=== PATIENT | male | born 1935 | race Caucasian/White ===

== ENCOUNTER 2016-11-14 11:28 | Emergency (ER) | payer MEDICARE ==
[2016-11-14] MEDS ORDERED: Sodium Chloride 0.9% 10 ML Syringe FLUSH PRN (12:01)
[2016-11-14] MEDS ORDERED: Sodium Chloride 0.9% 2.5 ML Syringe FLUSH PRN (12:01)
[2016-11-14] MEDS ORDERED: Albuterol/Ipratropium 3.0-0.5 MG/3 ML Neb Soln NEB ONE (12:02)
--- NOTE | 2016-11-14 12:07 | EDM.PDOC ---
ED HPI GENERAL MEDICAL PROBLEM - General Chief Complaint: Respiratory Problem Stated Complaint: COUGH Time Seen by Provider: 11/14/16 11:49 - History of Present Illness INITIAL COMMENTS - FREE TEXT/NARRATIVE: HISTORY AND PHYSICAL: History of present illness: The patient is an 81-year-old male who resides at [facility] and has a history of COPD dementia with mood disorder hypothyroidism BPH hypertension chronic renal disease A. fib and continues to try to smoke and use a nicotine gum and was sent by [facility] for persistent cough productive of phlegm low O2 sats and abnormal labs performed on November 05. According to the report his sats were in the 80s and they sent him here because he was coughing and had low oxygen. He was started on Levaquin yesterday by Dr. Naik for the cough. The patient initially did not want to come here and was refusing to come and refuse oxygen to be placed. According to CHEMICAL ECONOMIST at bedside he has not been eating and drinking very much and mostly drinks coffee. The patient admits that he drinks mostly coffee and is not eating very much due to lack of appetite. He says that he is having the cough but denies chest pain abdominal pain nausea or vomiting and no fevers or chills. He says that he has had some loose stools and he is unsure of any history of chronic renal disease or new problems. He states that he is passing his urine. Patient is not a very good historian and we are working solely from the notes and the CHEMICAL ECONOMIST's report at bedside. Review of systems: As per history of present illness and below otherwise all systems reviewed and negative. Past medical history: As per history of present illness and as reviewed below otherwise noncontributory. Surgical history: As per history of present illness and as reviewed below otherwise noncontributory. Social history: No reported history of drug or alcohol abuse. Family history: As per history of present illness and as reviewed below otherwise noncontributory. Physical exam: Gen.: Very thin and frail male in clearly without breathlessness and is quite verbally confrontational and grouchy. His skin turgor is diminished. HEENT: Atraumatic, normocephalic, pupils reactive, negative for conjunctival pallor or scleral icterus, mucous membranes tacky, throat clear, neck supple, nontender, trachea midline. Lungs: Clear to auscultation with some coarse breath sounds bilaterally and diminished breath sounds at the bases but no work of breathing or sensory muscle use, breath sounds equal bilaterally, chest nontender. Heart: S1S2, regular rate and rhythm no overt murmurs Abdomen: Soft, nondistended, bladder appears to be distended and somewhat tender on palpation but otherwise no rebound guarding or tenderness. Bowel sounds are hypoactive Negative for masses or hepatosplenomegaly. Negative for costovertebral tenderness. Pelvis: Stable nontender. Genitourinary: Deferred. Rectal: Deferred. Extremities: Atraumatic, negative for cords or calf pain. Neurovascular unremarkable. There is no pedal edema Neuro: Awake, alert, oriented. Motor and sensory unremarkable throughout. Exam nonfocal. Diagnostics: EKG chest x-ray CBC CMP INR UA urine culture blood cultures digoxin level troponin BNP lactic acid bladder scan Bladder scan revealed greater than 1 L of urine retention so a Vee will be placed. Therapeutics: IV O2 monitor gentle IV fluids duo neb Vee to gravity Please note that after the DuoNeb respiratory therapy says that he is 92% on room air but will sometimes dipped down and so oxygen will be applied. Please note that the blood work that was done on November 05, was sent by [facility] and this result reveals a BUS of 50 to a creatinine of 3.48 and a potassium of 5.9 with CO2 of 34. I spoke with Dr. Naik of [facility], this patient's provider at [facility], and he states that the patient had labs done yesterday which revealed a creatinine of 4.1. He was unaware of the urinary retention. He said that they were treating him pulmonary [place] with duo nebs oxygen and Levaquin. He states that if the labs are baseline and he does not want to stay in the hospital or there is no criteria for admission he is comfortable with the patient going back to the alf and he will see him on Thursday. We will continue with our workup and evaluate disposition once this is complete. Vee was placed and 1400 mL of urine has come out. UA and urine culture were sent. We have clamped the Vee and will reopen it in a bit and nursing will document the total urine output. 1307: Case was rediscussed with Dr. Naik. He is aware of all testing results and says he cannot recall if a dig level has been done in recent months to indicate if this level today is elevated acutely or chronically. He is recommending stopping the digoxin and he will formalize that order at [facility]. I discussed with the patient the testing results as best as he can understand here and that he should be observed in the hospital due to his kidneys and the postobstructive uropathy and he is adamant about going back to [facility]. From the moment the patient has arrived here until now he has been adamant about returning to [facility] and not staying in the hospital. Our nursing metalizing supervisor Aaron is also discussed with him at length and he is agreeable to keep the Vee in which she previously wanted removed but he is again refusing admission to him as well. Dr. Naik is aware of this and of my concerns and he says he will follow up the patient's renal function and digitoxin level on Thursday. Critical care time excluding procedures: 35min Impression: Dyspnea and mild hypoxia probable COPD exacerbation, on treatment Progressively worsening renal function with Acute urinary retention --with a history of BPH--rule out postobstructive uropathy Elevated digoxin level Diffusing admission for observation Definitive disposition and diagnosis as appropriate pending reevaluation and review of above. - Related Data Allergies Allergy/AdvReac Type Severity Reaction Status Date / Time Penicillins Allergy Rash Verified 05/18/13 17:19 Home Meds: Home Meds Acetaminophen [Tylenol Extra Strength] 500 mg PO TID PRN 05/18/13 [History] Digoxin 0.125 mg PO DAILY 05/18/13 [History] Tamsulosin [Tamsulosin 24 Hr] 0.4 mg PO DAILY 05/18/13 [History] Albuterol/Ipratropium [DuoNeb 3.0-0.5 MG/3 ML] 3 ml NEB QID 11/14/16 [History] Ascorbate Calcium [Vitamin C] 1,000 mg PO BID 11/14/16 [History] Aspirin [Halfprin] 81 mg PO DAILY 11/14/16 [History] Calcium Carbonate/Vitamin D3 [Calcium 600 + Vit D 200] 1 tab PO DAILY 11/14/16 [ History] Carboxymethylcellulose Sodium [Refresh Tears] 2 drop EYEBOTH TID 11/14/16 [ History] Dextromethorphan/guaiFENesin [Robitussin DM] 5 ml PO Q4H PRN 11/14/16 [History] Donepezil HCl [Aricept] 10 mg PO BEDTIME 11/14/16 [History] Famotidine [Pepcid] 40 mg PO DAILY 11/14/16 [History] Fish Oil/Mel[place]-3 Fatty Acids [Fish Oil 1,000 MG] 1,000 mg PO TID 11/14/16 [ History] Fluticasone Propionate [Flonase] 2 spray NASBOTH DAILY PRN 11/14/16 [History] Furosemide 40 mg PO BID 11/14/16 [History] Glucosamine [Glucosamine Sulfate] 500 mg PO TID 11/14/16 [History] Hydrochlorothiazide 25 mg PO DAILY 11/14/16 [History] Levofloxacin [Levaquin] 500 mg PO DAILY 11/14/16 [History] Levothyroxine [Synthroid] 50 mcg PO ACBREAKFAST 11/14/16 [History] Melatonin 3 mg PO BEDTIME 11/14/16 [History] Metoprolol Succinate [Toprol XL] 100 mg PO DAILY 11/14/16 [History] Multivitamin [Daily Piper] 1 tab PO DAILY 11/14/16 [History] Nicotine Polacrilex [Nicorette] 2 mg PO ASDIRECTED PRN 11/14/16 [History] Sodium Chloride 0.9% [Normal Saline] 1,000 ml IV DAILY MDD 1000 ML 11/14/16 [ History] Vit A & D3 In Cod Liver Oil [Cod Liver Oil Softgel] 1,000 mg PO DAILY 11/14/16 [ History] ED ROS GENERAL - Review of Systems Review Of Systems: ROS reveals no pertinent complaints other than HPI. ED EXAM, GENERAL - Physical Exam Exam: See Below (See dictation) Course - Vital Signs Last Recorded V/S: Last Vital Signs Temp 36.3 C 11/14/16 11:50 Pulse 70 11/14/16 11:50 Resp 20 11/14/16 11:50 BP 87/54 L 11/14/16 11:50 Pulse Ox 91 L 11/14/16 11:50 - Orders/Labs/Meds Orders: Active Orders 24 hr Category Date Time Status Cardiac Monitoring [RC] . DIRECTED Care 11/14/16 12:00 Active EKG Documentation Completion [RC] STAT Care 11/14/16 12:00 Active Insert Vee Catheter [Insert Urinary Catheter] [OM.PC] Care 11/14/16 13:00 Ordered Q24H Oxygen Therapy, ED [RC] ASDIRECTED Care 11/14/16 12:00 Active Pulse Oximetry [RC] ASDIRECTED Care 11/14/16 12:00 Active RT Aerosol Therapy [RC] ASDIRECTED Care 11/14/16 12:02 Active Urinary Catheter Assessment [RC] ASDIRECTED Care 11/14/16 12:47 Active CULTURE BLOOD [BC] Stat Lab 11/14/16 12:21 Received CULTURE BLOOD [BC] Stat Lab 11/14/16 12:38 Received CULTURE URINE [RM] Stat Lab 11/14/16 13:35 Received Sodium Chloride 0.9% [Normal Saline] 1,000 ml Med 11/14/16 12:15 Active IV ASDIRECTED Sodium Chloride 0.9% [Saline Flush] Med 11/14/16 12:01 Active 10 ml FLUSH ASDIRECTED PRN Sodium Chloride 0.9% [Saline Flush] Med 11/14/16 12:01 Active 2.5 ml FLUSH ASDIRECTED PRN Blood Culture x2 Reflex Set [OM.PC] Stat Oth 11/14/16 12:01 Ordered Saline Lock Insert [OM.PC] Stat Oth 11/14/16 12:00 Ordered Medication Orders Sodium Chloride (Normal Saline) 1,000 mls @ 70 mls/hr IV ASDIRECTED KETAN Sodium Chloride (Saline Flush) 10 ml FLUSH ASDIRECTED PRN PRN Reason: Keep Vein Open Sodium Chloride (Saline Flush) 2.5 ml FLUSH ASDIRECTED PRN PRN Reason: Keep Vein Open Labs: Laboratory Tests 11/14/16 11/14/16 11/14/16 Range/Units 12:38 12:38 12:38 WBC 7.72 (4.0-11.0) K/uL RBC 4.11 L (4.50-5.90) M/uL Hgb 12.6 L (13.0-17.0) g/dL Hct 39.7 (38.0-50.0) % MCV 96.6 (80.0-98.0) fL MCH 30.7 (27.0-32.0) pg MCHC 31.7 (31.0-37.0) g/dL RDW Std Deviation 57.4 (28.0-62.0) fl RDW Coeff of Bryce 16 H (11.0-15.0) % Plt Count 161 (150-400) K/uL MPV 9.50 (7.40-12.00) fL Neut % (Auto) 84.0 H (48.0-80.0) % Lymph % (Auto) 6.0 L (16.0-40.0) % [place] % (Auto) 9.2 (0.0-15.0) % Eos % (Auto) 0.5 (0.0-7.0) % Baso % (Auto) 0.3 (0.0-1.5) % Neut # (Auto) 6.5 H (1.4-5.7) K/uL Lymph # (Auto) 0.5 L (0.6-2.4) K/uL [place] # (Auto) 0.7 (0.0-0.8) K/uL Eos # (Auto) 0.0 (0.0-0.7) K/uL Baso # (Auto) 0.0 (0.0-0.1) K/uL Nucleated RBC % 0.0 /100WBC Nucleated RBCs # 0 K/uL INR (0.86-1.11) Lactate 1.8 (0.20-2.00) mmol/L Sodium (136-146) mmol/L Potassium (3.5-5.1) mmol/L Chloride (98-110) mmol/L Carbon Dioxide (21-31) mmol/L BUN (6.0-23.0) mg/dL Creatinine (0.6-1.5) mg/dL Est Cr Clr Drug Dosing Estimated GFR (MDRD) ml/min Glucose (60-110) mg/dL Calcium (8.8-10.8) mg/dL Total Bilirubin (0.1-1.5) mg/dL AST (5-40) IU/L ALT (8-54) IU/L Alkaline Phosphatase (40-150) Troponin I < 0.10 (0.0-0.29) NG/ML B-Natriuretic Peptide (<100) PG/ML Total Protein (6.0-8.0) g/dL Albumin (3.4-4.8) g/dL Globulin (2.0-3.5) g/dL Albumin/Globulin Ratio (1.3-2.8) Urine Color Urine Appearance Urine pH (5.0-8.0) Ur Specific [place] (1.001-1.035) Urine Protein (NEGATIVE) mg/dL Urine Glucose (UA) (NEGATIVE) mg/dL Urine Ketones (NEGATIVE) mg/dL Urine Occult Blood (NEGATIVE) Urine Nitrite (NEGATIVE) Urine Bilirubin (NEGATIVE) Urine Urobilinogen (<2.0) EU/dL Ur Leukocyte Esterase (NEGATIVE) Urine RBC (0-2/HPF) Urine WBC (0-5/HPF) Ur Epithelial Cells (NONE-FEW) Urine Bacteria (NEGATIVE) Digoxin (0.8-2.0) ng/mL 11/14/16 11/14/16 11/14/16 Range/Units 12:58 12:58 12:58 WBC (4.0-11.0) K/uL RBC (4.50-5.90) M/uL Hgb (13.0-17.0) g/dL Hct (38.0-50.0) % MCV (80.0-98.0) fL MCH (27.0-32.0) pg MCHC (31.0-37.0) g/dL RDW Std Deviation (28.0-62.0) fl RDW Coeff of Bryce (11.0-15.0) % Plt Count (150-400) K/uL MPV (7.40-12.00) fL Neut % (Auto) (48.0-80.0) % Lymph % (Auto) (16.0-40.0) % [place] % (Auto) (0.0-15.0) % Eos % (Auto) (0.0-7.0) % Baso % (Auto) (0.0-1.5) % Neut # (Auto) (1.4-5.7) K/uL Lymph # (Auto) (0.6-2.4) K/uL [place] # (Auto) (0.0-0.8) K/uL Eos # (Auto) (0.0-0.7) K/uL Baso # (Auto) (0.0-0.1) K/uL Nucleated RBC % /100WBC Nucleated RBCs # K/uL INR 1.02 (0.86-1.11) Lactate (0.20-2.00) mmol/L Sodium 138 (136-146) mmol/L Potassium 4.5 (3.5-5.1) mmol/L Chloride 93 L (98-110) mmol/L Carbon Dioxide 29 (21-31) mmol/L BUN 71 H (6.0-23.0) mg/dL Creatinine 4.5 H (0.6-1.5) mg/dL Est Cr Clr Drug Dosing TNP Estimated GFR (MDRD) 12.6 ml/min Glucose 102 (60-110) mg/dL Calcium 10.1 (8.8-10.8) mg/dL Total Bilirubin 0.5 (0.1-1.5) mg/dL AST 16 (5-40) IU/L ALT 10 (8-54) IU/L Alkaline Phosphatase 34 L (40-150) Troponin I (0.0-0.29) NG/ML B-Natriuretic Peptide 371 H (<100) PG/ML Total Protein 6.7 (6.0-8.0) g/dL Albumin 3.6 (3.4-4.8) g/dL Globulin 3.1 (2.0-3.5) g/dL Albumin/Globulin Ratio 1.2 L (1.3-2.8) Urine Color Urine Appearance Urine pH (5.0-8.0) Ur Specific [place] (1.001-1.035) Urine Protein (NEGATIVE) mg/dL Urine Glucose (UA) (NEGATIVE) mg/dL Urine Ketones (NEGATIVE) mg/dL Urine Occult Blood (NEGATIVE) Urine Nitrite (NEGATIVE) Urine Bilirubin (NEGATIVE) Urine Urobilinogen (<2.0) EU/dL Ur Leukocyte Esterase (NEGATIVE) Urine RBC (0-2/HPF) Urine WBC (0-5/HPF) Ur Epithelial Cells (NONE-FEW) Urine Bacteria (NEGATIVE) Digoxin 2.37 H (0.8-2.0) ng/mL 11/14/16 Range/Units 13:35 WBC (4.0-11.0) K/uL RBC (4.50-5.90) M/uL Hgb (13.0-17.0) g/dL Hct (38.0-50.0) % MCV (80.0-98.0) fL MCH (27.0-32.0) pg MCHC (31.0-37.0) g/dL RDW Std Deviation (28.0-62.0) fl RDW Coeff of Bryce (11.0-15.0) % Plt Count (150-400) K/uL MPV (7.40-12.00) fL Neut % (Auto) (48.0-80.0) % Lymph % (Auto) (16.0-40.0) % [place] % (Auto) (0.0-15.0) % Eos % (Auto) (0.0-7.0) % Baso % (Auto) (0.0-1.5) % Neut # (Auto) (1.4-5.7) K/uL Lymph # (Auto) (0.6-2.4) K/uL [place] # (Auto) (0.0-0.8) K/uL Eos # (Auto) (0.0-0.7) K/uL Baso # (Auto) (0.0-0.1) K/uL Nucleated RBC % /100WBC Nucleated RBCs # K/uL INR (0.86-1.11) Lactate (0.20-2.00) mmol/L Sodium (136-146) mmol/L Potassium (3.5-5.1) mmol/L Chloride (98-110) mmol/L Carbon Dioxide (21-31) mmol/L BUN (6.0-23.0) mg/dL Creatinine (0.6-1.5) mg/dL Est Cr Clr Drug Dosing Estimated GFR (MDRD) ml/min Glucose (60-110) mg/dL Calcium (8.8-10.8) mg/dL Total Bilirubin (0.1-1.5) mg/dL AST (5-40) IU/L ALT (8-54) IU/L Alkaline Phosphatase (40-150) Troponin I (0.0-0.29) NG/ML B-Natriuretic Peptide (<100) PG/ML Total Protein (6.0-8.0) g/dL Albumin (3.4-4.8) g/dL Globulin (2.0-3.5) g/dL Albumin/Globulin Ratio (1.3-2.8) Urine Color YELLOW Urine Appearance CLEAR Urine pH 5.5 (5.0-8.0) Ur Specific [place] 1.015 (1.001-1.035) Urine Protein NEGATIVE (NEGATIVE) mg/dL Urine Glucose (UA) NEGATIVE (NEGATIVE) mg/dL Urine Ketones NEGATIVE (NEGATIVE) mg/dL Urine Occult Blood NEGATIVE (NEGATIVE) Urine Nitrite NEGATIVE (NEGATIVE) Urine Bilirubin NEGATIVE (NEGATIVE) Urine Urobilinogen 0.2 (<2.0) EU/dL Ur Leukocyte Esterase NEGATIVE (NEGATIVE) Urine RBC 0-1 (0-2/HPF) Urine WBC 1-3 (0-5/HPF) Ur Epithelial Cells FEW (NONE-FEW) Urine Bacteria FEW (NEGATIVE) Digoxin (0.8-2.0) ng/mL Meds: Medications Generic Name Dose Route Start Last Admin Trade Name Freq PRN Reason Stop Dose Admin Sodium Chloride 1,000 mls @ 70 mls/hr 11/14/16 12:15 Normal Saline IV ASDIRECTED KETAN Sodium Chloride 10 ml 11/14/16 12:01 Saline Flush FLUSH ASDIRECTED PRN Keep Vein Open Sodium Chloride 2.5 ml 11/14/16 12:01 Saline Flush FLUSH ASDIRECTED PRN Keep Vein Open Discontinued Medications Generic Name Dose Route Start Last Admin Trade Name Freq PRN Reason Stop Dose Admin Albuterol/Ipratropium 3 ml 11/14/16 12:02 11/14/16 12:24 Duoneb 3.0-0.5 Mg/3 Ml NEB 11/14/16 12:03 3 ml ONETIME ONE Administration Departure - Departure Time of Disposition: 15:11 Disposition: DC/Tfer to SNF 03 Condition: Fair Clinical Impression: Urinary retention, Abnormal renal function test COPD (chronic obstructive pulmonary disease) Qualifiers: COPD type: unspecified COPD Qualified Code(s): J44.9 - Chronic obstructive pulmonary disease, unspecified - Discharge Information Referrals: Fernando Arellano MD [Primary Care Provider] - Forms: ED Department Discharge Additional Instructions: The following information is given to patients seen in the emergency department who are being discharged to home. This information is to outline your options for follow-up care. We provide all patients seen in our emergency department with a follow-up referral. The need for follow-up, as well as the timing and circumstances, are variable depending upon the specifics of your emergency department visit. If you don't have a primary care physician on staff, we will provide you with a referral. We always advise you to contact your personal physician following an emergency department visit to inform them of the circumstance of the visit and for follow-up with them and/or the need for any referrals to a consulting specialist. The emergency department will also refer you to a specialist when appropriate. This referral assures that you have the opportunity for followup care with a specialist. All of these measure are taken in an effort to provide you with optimal care, which includes your followup. Under all circumstances we always encourage you to contact your private physician who remains a resource for coordinating your care. When calling for followup care, please make the office aware that this follow-up is from your recent emergency room visit. If for any reason you are refused follow-up, please contact the [facility] emergency department at and ask to speak to the emergency department charge nurse. [address] [place] [address] Naik for any further clarification of orders. Please stop your digoxin permanently. Please maintain normal Vee care with the Vee that was placed here in the emergency department. Continue all home medications. Continue with the breathing treatments and oxygen therapy as ordered by Dr. Naik. Return to ER as needed and as discussed and if you change your mind and would like admission. - My Orders Last 24 Hours: My Active Orders 11/14/16 12:00 Cardiac Monitoring [RC] . DIRECTED EKG Documentation Completion [RC] STAT Oxygen Therapy, ED [RC] ASDIRECTED Pulse Oximetry [RC] ASDIRECTED Saline Lock Insert [OM.PC] Stat 11/14/16 12:01 Sodium Chloride 0.9% [Saline Flush] 10 ml FLUSH ASDIRECTED PRN Sodium Chloride 0.9% [Saline Flush] 2.5 ml FLUSH ASDIRECTED PRN Blood Culture x2 Reflex Set [OM.PC] Stat 11/14/16 12:02 RT Aerosol Therapy [RC] ASDIRECTED 11/14/16 12:15 Sodium Chloride 0.9% [Normal Saline] 1,000 ml IV ASDIRECTED 11/14/16 12:21 CULTURE BLOOD [BC] Stat 11/14/16 12:38 CULTURE BLOOD [BC] Stat 11/14/16 12:47 Urinary Catheter Assessment [RC] ASDIRECTED 11/14/16 13:00 Insert Vee Catheter [Insert Urinary Catheter] [OM.PC] Q24H 11/14/16 13:35 CULTURE URINE [RM] Stat - Assessment/Plan Last 24 Hours: My Active Orders 11/14/16 12:00 Cardiac Monitoring [RC] . DIRECTED EKG Documentation Completion [RC] STAT Oxygen Therapy, ED [RC] ASDIRECTED Pulse Oximetry [RC] ASDIRECTED Saline Lock Insert [OM.PC] Stat 11/14/16 12:01 Sodium Chloride 0.9% [Saline Flush] 10 ml FLUSH ASDIRECTED PRN Sodium Chloride 0.9% [Saline Flush] 2.5 ml FLUSH ASDIRECTED PRN Blood Culture x2 Reflex Set [OM.PC] Stat 11/14/16 12:02 RT Aerosol Therapy [RC] ASDIRECTED 11/14/16 12:15 Sodium Chloride 0.9% [Normal Saline] 1,000 ml IV ASDIRECTED 11/14/16 12:21 CULTURE BLOOD [BC] Stat 11/14/16 12:38 CULTURE BLOOD [BC] Stat 11/14/16 12:47 Urinary Catheter Assessment [RC] ASDIRECTED 11/14/16 13:00 Insert Vee Catheter [Insert Urinary Catheter] [OM.PC] Q24H 11/14/16 13:35 CULTURE URINE [RM] Stat
[2016-11-14] MEDS ORDERED: Sodium Chloride 0.9% 1,000 ML IV SCH (12:15)
[2016-11-14 13:19] LABS: CHLORIDE,CL 93 mmol/L (98-110); SODIUM,NA 138 mmol/L (136-146)
[2016-11-14 14:01] VITALS: BP 87/54
--- NOTE | 2016-11-14 14:07 | CR ---
EXAMINATION: Two-view chest (PA and Lateral views). HISTORY: Shortness of breath. FINDINGS: The trachea is midline. The cardiomediastinal silhouette is within normal limits. No pulmonary infilt rates, effusions or pneumothorax. Chronic interstitial prominence and hyperinflation. Osseous structures appear unremarkable. IMPRESSION: Chronic interstitial prominence and hyperinflation.
== END 2016-11-14 15:50 ==
LOC: MW.ED 11:28
DX: R33.9 Retention of urine, unspecified (principal); J44.9 Chronic obstructive pulmonary disease, unspecified; R94.4 Abnormal results of kidney function studies; Z88.0 Allergy status to penicillin; Z79.899 Other long term (current) drug therapy; Z79.82 Long term (current) use of aspirin
CPT/HCPCS: 36415; 51702; 51798; 71020; 80053; 80162; 81001; 83605; 83880; 84484; 85025; 85610; 87040; 87077; 87086; 93005; 94640; 99285; J7040; 99284

== ENCOUNTER 2017-03-10 08:25 | Emergency (ER) | payer MEDICARE ==
--- NOTE | 2017-03-10 09:02 | EDM.PDOC ---
ED HPI GENERAL MEDICAL PROBLEM - General Chief Complaint: Genitourinary Problem Stated Complaint: UNK Time Seen by Provider: 03/10/17 09:01 Source of Information: Reports: Patient - History of Present Illness INITIAL COMMENTS - FREE TEXT/NARRATIVE: HISTORY AND PHYSICAL: History of present illness: [ Patient presents from [facility] with testicular enlargement He is alert and nontoxic appearing Denies fever nausea vomiting chills sweats no chest pain shortness breath headache dizziness palpitation no bowel or urine symptoms ] Review of systems: As per history of present illness and below otherwise all systems reviewed and negative. Past medical history: As per history of present illness and as reviewed below otherwise noncontributory. Surgical history: As per history of present illness and as reviewed below otherwise noncontributory. Social history: No reported history of drug or alcohol abuse. Family history: As per history of present illness and as reviewed below otherwise noncontributory. Physical exam: HEENT: Atraumatic, normocephalic, pupils reactive, negative for conjunctival pallor or scleral icterus, mucous membranes moist, throat clear, neck supple, nontender, trachea midline. Lungs: Clear to auscultation, breath sounds equal bilaterally, chest nontender. Heart: S1S2, regular, negative for clicks, rubs, or JVD. Abdomen: Soft, nondistended, nontender. Negative for masses or hepatosplenomegaly. Negative for costovertebral tenderness. Pelvis: Stable nontender. Genitourinary: Scrotum is red and swollen with some black eschar over the right teste Rectal: Deferred. Extremities: Atraumatic, negative for cords or calf pain. Neurovascular unremarkable. Neuro: Awake, alert, oriented. Cranial nerves II through XII unremarkable. Cerebellum unremarkable. Motor and sensory unremarkable throughout. Exam nonfocal. Diagnostics: [Scrotum and contents ultrasound UA CBC CMP UA culture blood cultures 2 ] Therapeutics: [Saline 1 25 mL per hour Vancomycin 1 g Levaquin 500 milligrams IV Due to diversion status will be calling Rule for transfer over ground , all units tied up with other transfers at this time and we may have to go by air, however transport may be unavailable at this time for now ] Impression: [Scrotal abscess Definitive disposition and diagnosis as appropriate pending reevaluation and review of above. testicles Pain Score (Numeric/FACES): 6 - Related Data Allergies Allergy/AdvReac Type Severity Reaction Status Date / Time Penicillins Allergy Rash Verified 05/18/13 17:19 Home Meds: Home Meds Acetaminophen [Tylenol Extra Strength] 500 mg PO TID PRN 05/18/13 [History] Digoxin 0.125 mg PO DAILY 05/18/13 [History] Tamsulosin [Tamsulosin 24 Hr] 0.4 mg PO DAILY 05/18/13 [History] Albuterol/Ipratropium [DuoNeb 3.0-0.5 MG/3 ML] 3 ml NEB QID 11/14/16 [History] Ascorbate Calcium [Vitamin C] 1,000 mg PO BID 11/14/16 [History] Aspirin [Halfprin] 81 mg PO DAILY 11/14/16 [History] Calcium Carbonate/Vitamin D3 [Calcium 600 + Vit D 200] 1 tab PO DAILY 11/14/16 [ History] Carboxymethylcellulose Sodium [Refresh Tears] 2 drop EYEBOTH TID 11/14/16 [ History] Dextromethorphan/guaiFENesin [Robitussin DM] 5 ml PO Q4H PRN 11/14/16 [History] Donepezil HCl [Aricept] 10 mg PO BEDTIME 11/14/16 [History] Famotidine [Pepcid] 40 mg PO DAILY 11/14/16 [History] Fish Oil/[place]-3 Fatty Acids [Fish Oil 1,000 MG] 1,000 mg PO TID 11/14/16 [ History] Fluticasone Propionate [Flonase] 2 spray NASBOTH DAILY PRN 11/14/16 [History] Furosemide 40 mg PO BID 11/14/16 [History] Glucosamine [Glucosamine Sulfate] 500 mg PO TID 11/14/16 [History] Hydrochlorothiazide 25 mg PO DAILY 11/14/16 [History] Levofloxacin [Levaquin] 500 mg PO DAILY 11/14/16 [History] Levothyroxine [Synthroid] 50 mcg PO ACBREAKFAST 11/14/16 [History] Melatonin 3 mg PO BEDTIME 11/14/16 [History] Metoprolol Succinate [Toprol XL] 100 mg PO DAILY 11/14/16 [History] Multivitamin [Daily [place]] 1 tab PO DAILY 11/14/16 [History] Nicotine Polacrilex [Nicorette] 2 mg PO ASDIRECTED PRN 11/14/16 [History] Sodium Chloride 0.9% [Normal Saline] 1,000 ml IV DAILY MDD 1000 ML 11/14/16 [ History] Vit A & D3 In Cod Liver Oil [Cod Liver Oil Softgel] 1,000 mg PO DAILY 11/14/16 [ History] Past Medical History Cardiovascular History: Reports: Afib, High Cholesterol, Hypertension, SOB on Exertion Respiratory History: Reports: Bronchitis, Recurrent, COPD, Pneumonia, Recurrent , Other (See Below) Other Respiratory History: smoker Genitourinary History: Reports: BPH, Renal Disease, Retention, Urinary Musculoskeletal History: Reports: Osteoarthritis Neurological History: Reports: Alzheimers Disease Psychiatric History: Reports: Anxiety, Depression, Mood Swings Endocrine/Metabolic History: Reports: Hyperthyroidism Social & Family History - Tobacco Use Smoking Status *Q: Former Smoker Years of Tobacco use: 40 Packs/Tins Daily: 0.2 Used Tobacco, but Quit: Yes Month Tobacco Last Used: 2015 - Recreational Drug Use Recreational Drug Use: No ED ROS GENERAL - Review of Systems Review Of Systems: ROS reveals no pertinent complaints other than HPI. ED EXAM, GENERAL - Physical Exam Exam: See Below Course - Vital Signs Last Recorded V/S: Last Vital Signs Temp 97.9 F 03/10/17 11:55 Pulse 77 03/10/17 11:55 Resp 16 03/10/17 11:55 BP 134/59 L 03/10/17 11:55 Pulse Ox 97 03/10/17 11:55 - Orders/Labs/Meds Orders: Active Orders 24 hr Category Date Time Status CULTURE BLOOD [BC] Stat Lab 03/10/17 12:27 Ordered CULTURE BLOOD [BC] Stat Lab 03/10/17 12:27 Ordered CULTURE URINE [RM] Stat Lab 03/10/17 10:05 Received Levofloxacin/Dextrose 5%-Water [Levaquin in D5W 500 MG/ Med 03/10/17 12:25 Ordered 100 ML] 500 mg Premix Bag 1 bag IV ONETIME Vancomycin [Vancocin] 1 gm Med 03/10/17 12:26 Ordered Sodium Chloride 0.9% [Normal Saline] 250 ml IV ONETIME Vancomycin [Vancocin] 1 gm Med 03/10/17 12:26 Ordered Sodium Chloride 0.9% [Normal Saline] 250 ml IV ONETIME Blood Culture x2 Reflex Set [OM.PC] Stat Oth 03/10/17 12:27 Ordered Medication Orders Levofloxacin/Dextrose 500 mg/ (Premix) 100 mls @ 100 mls/hr IV ONETIME ONE Stop: 03/10/17 13:24 Vancomycin HCl 1 gm/ Sodium (Chloride) 250 mls @ 250 mls/hr IV ONETIME ONE Stop: 03/10/17 13:25 Vancomycin HCl 1 gm/ Sodium (Chloride) 250 mls @ 250 mls/hr IV ONETIME ONE Stop: 03/10/17 13:25 Labs: Laboratory Tests 03/10/17 03/10/17 03/10/17 Range/Units 09:58 09:58 10:05 WBC 20.33 H (4.0-11.0) K/uL RBC 4.04 L (4.50-5.90) M/uL Hgb 12.0 L (13.0-17.0) g/dL Hct 38.0 (38.0-50.0) % MCV 94.1 (80.0-98.0) fL MCH 29.7 (27.0-32.0) pg MCHC 31.6 (31.0-37.0) g/dL RDW Std Deviation 48.7 (28.0-62.0) fl RDW Coeff of Bryce 14 (11.0-15.0) % Plt Count 288 (150-400) K/uL MPV 9.10 (7.40-12.00) fL Add Manual Diff YES Neutrophils % (Manual) 92 H (48.0-80.0) % Lymphocytes % (Manual) 4 L (16.0-40.0) % Monocytes % (Manual) 4 (0.0-15.0) % Nucleated RBC % 0.0 /100WBC Absolute Seg Neuts 18.7 H (1.4-5.7) Lymphocytes # (Manual) 0.8 (0.6-2.4) Monocytes # (Manual) 0.8 (0.0-0.8) Nucleated RBCs # 0 K/uL Sodium 140 (136-146) mmol/L Potassium 4.3 (3.5-5.1) mmol/L Chloride 98 (98-110) mmol/L Carbon Dioxide 30 (21-31) mmol/L BUN 47 H (6.0-23.0) mg/dL Creatinine 1.3 (0.6-1.5) mg/dL Est Cr Clr Drug Dosing TNP Estimated GFR (MDRD) 52.9 ml/min Glucose 93 (60-110) mg/dL Calcium 10.0 (8.8-10.8) mg/dL Total Bilirubin 0.4 (0.1-1.5) mg/dL AST 12 (5-40) IU/L ALT 12 (8-54) IU/L Alkaline Phosphatase 58 (40-150) Total Protein 6.2 (6.0-8.0) g/dL Albumin 3.0 L (3.4-4.8) g/dL Globulin 3.2 (2.0-3.5) g/dL Albumin/Globulin Ratio 0.9 L (1.3-2.8) Urine Color YELLOW Urine Appearance CLEAR Urine pH 6.0 (5.0-8.0) Ur Specific [place] 1.020 (1.001-1.035) Urine Protein 30 (NEGATIVE) mg/dL Urine Glucose (UA) NEGATIVE (NEGATIVE) mg/dL Urine Ketones TRACE H (NEGATIVE) mg/dL Urine Occult Blood SMALL H (NEGATIVE) Urine Nitrite POSITIVE H (NEGATIVE) Urine Bilirubin NEGATIVE (NEGATIVE) Urine Urobilinogen 0.2 (<2.0) EU/dL Ur Leukocyte Esterase LARGE (NEGATIVE) Urine RBC 2-4 (0-2/HPF) Urine WBC 80-100 (0-5/HPF) Ur Epithelial Cells OCCASIONAL (NONE-FEW) Amorphous Sediment LIGHT (NEGATIVE) Urine Bacteria 4+ H (NEGATIVE) Urine Mucus LIGHT (NONE-MOD) Meds: Medications Generic Name Dose Route Start Last Admin Trade Name Kareem PRN Reason Stop Dose Admin Levofloxacin/Dextrose 500 mg/ 100 mls @ 100 mls/hr 03/10/17 12:25 Premix IV 03/10/17 13:24 ONETIME ONE Vancomycin HCl 1 gm/ Sodium 250 mls @ 250 mls/hr 03/10/17 12:26 Chloride IV 03/10/17 13:25 ONETIME ONE Vancomycin HCl 1 gm/ Sodium 250 mls @ 250 mls/hr 03/10/17 12:26 Chloride IV 03/10/17 13:25 ONETIME ONE Departure - Departure Time of Disposition: 12:40 Disposition: DC/Tfer to Other 70 Condition: Fair Clinical Impression: Scrotal abscess - Discharge Information Referrals: Hernan Naik MD [Primary Care Provider] - Forms: ED Department Discharge - My Orders Last 24 Hours: My Active Orders 03/10/17 10:05 CULTURE URINE [RM] Stat 03/10/17 12:25 Levofloxacin/Dextrose 5%-Water [Levaquin in D5W 500 MG/100 ML] 500 mg Premix Bag 1 bag IV ONETIME 03/10/17 12:26 Vancomycin [Vancocin] 1 gm Sodium Chloride 0.9% [Normal Saline] 250 ml IV ONETIME Vancomycin [Vancocin] 1 gm Sodium Chloride 0.9% [Normal Saline] 250 ml IV ONETIME 03/10/17 12:27 CULTURE BLOOD [BC] Stat CULTURE BLOOD [BC] Stat Blood Culture x2 Reflex Set [OM.PC] Stat - Assessment/Plan Last 24 Hours: My Active Orders 03/10/17 10:05 CULTURE URINE [RM] Stat 03/10/17 12:25 Levofloxacin/Dextrose 5%-Water [Levaquin in D5W 500 MG/100 ML] 500 mg Premix Bag 1 bag IV ONETIME 03/10/17 12:26 Vancomycin [Vancocin] 1 gm Sodium Chloride 0.9% [Normal Saline] 250 ml IV ONETIME Vancomycin [Vancocin] 1 gm Sodium Chloride 0.9% [Normal Saline] 250 ml IV ONETIME 03/10/17 12:27 CULTURE BLOOD [BC] Stat CULTURE BLOOD [BC] Stat Blood Culture x2 Reflex Set [OM.PC] Stat
[2017-03-10 10:28] LABS: CHLORIDE,CL 98 mmol/L (98-110); SODIUM,NA 140 mmol/L (136-146)
--- NOTE | 2017-03-10 12:19 | US ---
Scrotal sonography Multiple longitudinal and transverse sections demonstrate bilateral hydroceles. The right testis is m arkedly abnormal with multiple low density I. Pocock foci throughout the testis and a large amount of debris in the hydrocele around the testis. On exam most consistent with multiple abscesses in the te stis. Epididymis is markedly swollen also. The left testis is morphologically normal. Right testis is larger than the left measuring 4.5 cm in greatest dimension whether whereas the left testis measures 3.8 cm in greatest dimension Impression: Multiple testicular abscesses in the testis on the right with swollen epididymis and like ly infected hydrocele as described. Left testis relatively normal with small hydrocele
[2017-03-10] MEDS ORDERED: Levofloxacin/Dextrose 5%-Water 500 MG in Premix Bag 1 BAG IV ONE (12:25)
[2017-03-10 13:45] VITALS: BP 132/60
== END 2017-03-10 14:05 | disposition other institution (70) ==
LOC: MW.ED 08:25
DX: N49.2 Inflammatory disorders of scrotum (principal); E78.00 Pure hypercholesterolemia, unspecified; J44.9 Chronic obstructive pulmonary disease, unspecified; I10 Essential (primary) hypertension; E05.90 Thyrotoxicosis, unspecified without thyrotoxic crisis or storm; I48.92 Unspecified atrial flutter; Z87.01 Personal history of pneumonia (recurrent); G30.9 Alzheimer's disease, unspecified; Z88.0 Allergy status to penicillin; Z79.899 Other long term (current) drug therapy; Z79.82 Long term (current) use of aspirin
CPT/HCPCS: 36415; 76870; 80053; 81001; 85025; 87040; 87086; 87088; 87186; 96365; 99285; J1956; J3370; J7050; 99284

== ENCOUNTER 2017-03-24 22:36 | Inpatient (IN) | payer MEDICARE ==
[2017-03-24] MEDS ORDERED: Sodium Chloride 0.9% 2.5 ML Syringe FLUSH PRN (22:50)
[2017-03-24] MEDS ORDERED: Sodium Chloride 0.9% 10 ML Syringe FLUSH PRN (22:50)
[2017-03-24] MEDS ORDERED: Albuterol/Ipratropium 3.0-0.5 MG/3 ML Neb Soln NEB ONE (22:51)
--- NOTE | 2017-03-24 22:55 | EDM.PDOC ---
ED HPI GENERAL MEDICAL PROBLEM - General Chief Complaint: Respiratory Problem Stated Complaint: PT DIFFICULTY BREATHING Time Seen by Provider: 03/24/17 22:45 - History of Present Illness INITIAL COMMENTS - FREE TEXT/NARRATIVE: HISTORY AND PHYSICAL: History of present illness: The patient is an 81-year-old male who resides at [facility] and was sent over for progressive cough and low sats that started throughout the day today. The patient has Alzheimer's dementia and cannot offer much history and also has a history of oxygen dependency using 2 L nasal cannula at all times COPD CHF BPH for which he has a chronic indwelling Vee with thyroidism and a history of A. fib for which he is taking no medications. The patient is a code 3. He presents to the ER not able to offer much information but he does verbalize at times and he can follow simple commands. Further history is only per the [place] notes and reports that was given. I was Told that the patient had a fever vomiting or any other symptomatology. Review of systems: As per history of present illness and below otherwise all systems reviewed and negative. Past medical history: As per history of present illness and as reviewed below otherwise noncontributory. Surgical history: As per history of present illness and as reviewed below otherwise noncontributory. Social history: No reported history of drug or alcohol abuse. Family history: As per history of present illness and as reviewed below otherwise noncontributory. Physical exam: Gen.: Thin cachectic man who is maintaining his airway and sounds somewhat congested audibly and vital signs are noted by me. Patient O2 sat on arrival was 80% HEENT: Atraumatic, normocephalic, pupils reactive but very small and equal, negative for conjunctival pallor or scleral icterus, mucous membranes tacky, throat clear, neck supple, nontender, trachea midline. Lungs: Poor effort and diminished breath sounds throughout with coarse rhonchi but no overt wheezing but breath sounds are so diminished it is hard to identify adventitial noise breath sounds equal bilaterally, chest nontender. Heart: S1S2, regular rate and slightly irregular rhythm no overt murmurs are appreciated on my exam but heart sounds are very distant Abdomen: Soft, nondistended, nontender. Bowel sounds are hypoactive and there is some tympany on percussion Negative for masses or hepatosplenomegaly. Pelvis: Stable nontender. Genitourinary: Deferred. Rectal: Deferred. Extremities: Atraumatic, negative for cords or calf pain. Neurovascular unremarkable. Neuro: Awake, alert, complete neuro exam cannot be performed as the patient does not follow most commands but there are no gross lateralizing or motor changes appreciated and the patient does respond to pain and stimui. Exam nonfocal. Diagnostics: CBC CMP BNP troponin lactic acid blood cultures UA urine culture chest x-ray influenza swab EKG Therapeutics: IV O2 monitor gentle IV fluids duo neb Solu-Medrol Lasix Levaquin On my review of the patient's med list from the intermediate he has not taken any anticoagulations therapy nor is he taking any cardiac meds for atrial fibrillation. He is on chronic Keflex 500 mg 4 times a day and he also takes hydrochlorothiazide 25 mg daily and no Lasix. After the DuoNeb we have been able to titrate the oxygen and on 6 L nasal cannula here he is currently 99%. He overall looks much better and is breathing more easily. I will discussed the testing results with our hospitalist including the BNP and the new small left pleural effusion within the context of the patient's presenting cough congestion and hypoxia. Patient also has UTI per his urine from his Vee and I will discuss with the hospitalist adding a new antibiotic . 0110: I discussed this case with Dr. Rodríguez our hospitalist and he agrees to observation admission due to the increased oxygen needs of this patient and need for some medications and follow-up. We agreed to give him a dose of Levaquin orally for the urinary tract infection as well as a dose of Lasix and Solu-Medrol. Impression: Dyspnea with hypoxia, rule out acute on chronic CHF/COPD Definitive disposition and diagnosis as appropriate pending reevaluation and review of above. - Related Data Allergies Allergy/AdvReac Type Severity Reaction Status Date / Time Penicillins Allergy Rash Verified 03/24/17 23:14 Home Meds: Home Meds Acetaminophen [Tylenol Extra Strength] 500 mg PO TID PRN 05/18/13 [History] Tamsulosin [Tamsulosin 24 Hr] 2 cap PO DAILY 05/18/13 [History] Albuterol/Ipratropium [DuoNeb 3.0-0.5 MG/3 ML] 3 ml NEB QID 11/14/16 [History] Ascorbate Calcium [Vitamin C] 1,000 mg PO BID 11/14/16 [History] Aspirin [Halfprin] 81 mg PO DAILY 11/14/16 [History] Calcium Carbonate/Vitamin D3 [Calcium 600 + Vit D 200] 1 tab PO DAILY 11/14/16 [ History] Carboxymethylcellulose Sodium [Refresh Tears] 2 drop EYEBOTH TID 11/14/16 [ History] Dextromethorphan/guaiFENesin [Robitussin DM] 5 ml PO Q4H PRN 11/14/16 [History] Donepezil HCl [Aricept] 10 mg PO BEDTIME 11/14/16 [History] Famotidine [Pepcid] 40 mg PO DAILY 11/14/16 [History] Fish Oil/Azle-3 Fatty Acids [Fish Oil 1,000 MG] 1,000 mg PO TID 11/14/16 [ History] Fluticasone Propionate [Flonase] 2 spray NASBOTH DAILY PRN 11/14/16 [History] Glucosamine [Glucosamine Sulfate] 500 mg PO TID 11/14/16 [History] Hydrochlorothiazide 25 mg PO DAILY 11/14/16 [History] Levothyroxine [Synthroid] 50 mcg PO ACBREAKFAST 11/14/16 [History] Melatonin 3 mg PO BEDTIME 11/14/16 [History] Metoprolol Succinate [Toprol XL] 100 mg PO DAILY 11/14/16 [History] Multivitamin [Daily Piper] 1 tab PO DAILY 11/14/16 [History] Nicotine Polacrilex [Nicorette] 2 mg PO ASDIRECTED PRN 11/14/16 [History] Vit A & D3 In Cod Liver Oil [Cod Liver Oil Softgel] 1,000 mg PO DAILY 11/14/16 [ History] Cephalexin [Keflex] 500 mg PO QID 03/25/17 [History] Past Medical History Cardiovascular History: Reports: Afib, High Cholesterol, Hypertension, SOB on Exertion Respiratory History: Reports: Bronchitis, Recurrent, COPD, Pneumonia, Recurrent , Other (See Below) Other Respiratory History: smoker Genitourinary History: Reports: BPH, Renal Disease, Retention, Urinary Musculoskeletal History: Reports: Osteoarthritis Neurological History: Reports: Alzheimers Disease Psychiatric History: Reports: Anxiety, Depression, Mood Swings Endocrine/Metabolic History: Reports: Hyperthyroidism Social & Family History - Tobacco Use Smoking Status *Q: Former Smoker Years of Tobacco use: 40 Packs/Tins Daily: 0.2 Used Tobacco, but Quit: Yes Month Tobacco Last Used: 2016 - Recreational Drug Use Recreational Drug Use: No ED ROS GENERAL - Review of Systems Review Of Systems: ROS reveals no pertinent complaints other than HPI. ED EXAM, GENERAL - Physical Exam Exam: See Below (see dictation) Course - Vital Signs Last Recorded V/S: Last Vital Signs Temp 36.2 C 03/24/17 22:36 Pulse 68 03/25/17 01:03 Resp 18 03/25/17 01:03 BP 128/56 L 03/25/17 01:03 Pulse Ox 100 03/25/17 01:03 - Orders/Labs/Meds Orders: Active Orders 24 hr Category Date Time Status Patient Status [ADT] Stat ADT 03/25/17 01:10 Ordered Cardiac Monitoring [RC] . DIRECTED Care 03/24/17 22:50 Active EKG Documentation Completion [RC] STAT Care 03/24/17 22:50 Active Oxygen Therapy, ED [RC] ASDIRECTED Care 03/24/17 22:50 Active Pulse Oximetry [RC] ASDIRECTED Care 03/24/17 22:50 Active RT Aerosol Therapy [RC] ASDIRECTED Care 03/24/17 22:52 Active Chest 1V Frontal [CR] Stat Exams 03/24/17 22:51 Taken CULTURE BLOOD [BC] Stat Lab 03/24/17 23:05 Received CULTURE BLOOD [BC] Stat Lab 03/24/17 23:19 Results CULTURE URINE [RM] Stat Lab 03/25/17 00:03 Received Furosemide [Lasix] Med 03/25/17 01:09 Once 40 mg IVPUSH NOW ONE Levofloxacin [Levaquin] Med 03/25/17 01:09 Once 500 mg PO ONETIME ONE Sodium Chloride 0.9% [Normal Saline] 1,000 ml Med 03/24/17 23:00 Active IV ASDIRECTED Sodium Chloride 0.9% [Saline Flush] Med 03/24/17 22:50 Active 10 ml FLUSH ASDIRECTED PRN Sodium Chloride 0.9% [Saline Flush] Med 03/24/17 22:50 Active 2.5 ml FLUSH ASDIRECTED PRN methylPREDNISolone Sod Succ [Solu-MEDROL] Med 03/25/17 01:09 Once 125 mg IVPUSH ONETIME ONE Blood Culture x2 Reflex Set [OM.PC] Stat Oth 03/24/17 22:51 Ordered Saline Lock Insert [OM.PC] Stat Oth 03/24/17 22:50 Ordered Medication Orders Sodium Chloride (Normal Saline) 1,000 mls @ 83 mls/hr IV ASDIRECTED KETAN Last Admin: 03/24/17 23:21 Dose: 83 mls/hr Sodium Chloride (Saline Flush) 10 ml FLUSH ASDIRECTED PRN PRN Reason: Keep Vein Open Last Admin: 03/24/17 23:20 Dose: 10 ml Sodium Chloride (Saline Flush) 2.5 ml FLUSH ASDIRECTED PRN PRN Reason: Keep Vein Open Last Admin: 03/24/17 23:20 Dose: 2.5 ml Labs: Laboratory Tests 03/24/17 03/24/17 03/24/17 Range/Units 00:13 23:05 23:05 WBC 8.09 (4.0-11.0) K/uL RBC 3.67 L (4.50-5.90) M/uL Hgb 10.7 L (13.0-17.0) g/dL Hct 36.0 L (38.0-50.0) % MCV 98.1 H (80.0-98.0) fL MCH 29.2 (27.0-32.0) pg MCHC 29.7 L (31.0-37.0) g/dL RDW Std Deviation 53.8 (28.0-62.0) fl RDW Coeff of Bryce 15 (11.0-15.0) % Plt Count 191 (150-400) K/uL MPV 10.40 (7.40-12.00) fL Neut % (Auto) 85.0 H (48.0-80.0) % Lymph % (Auto) 4.1 L (16.0-40.0) % Frontier % (Auto) 9.4 (0.0-15.0) % Eos % (Auto) 1.0 (0.0-7.0) % Baso % (Auto) 0.5 (0.0-1.5) % Neut # (Auto) 6.9 H (1.4-5.7) K/uL Lymph # (Auto) 0.3 L (0.6-2.4) K/uL Frontier # (Auto) 0.8 (0.0-0.8) K/uL Eos # (Auto) 0.1 (0.0-0.7) K/uL Baso # (Auto) 0.0 (0.0-0.1) K/uL Nucleated RBC % 0.0 /100WBC Nucleated RBCs # 0 K/uL Lactate (0.20-2.00) mmol/L Sodium 141 (136-146) mmol/L Potassium 5.0 (3.5-5.1) mmol/L Chloride 97 L (98-110) mmol/L Carbon Dioxide 35 H (21-31) mmol/L BUN 14 (6.0-23.0) mg/dL Creatinine 0.8 (0.6-1.5) mg/dL Est Cr Clr Drug Dosing TNP Estimated GFR (MDRD) > 60.0 ml/min Glucose 93 (60-110) mg/dL Calcium 9.0 (8.8-10.8) mg/dL Total Bilirubin 0.3 (0.1-1.5) mg/dL AST 16 (5-40) IU/L ALT 6 L (8-54) IU/L Alkaline Phosphatase 51 (40-150) Troponin I < 0.10 (0.0-0.29) NG/ML B-Natriuretic Peptide 1561 H (<100) PG/ML Total Protein 5.5 L (6.0-8.0) g/dL Albumin 2.8 L (3.4-4.8) g/dL Globulin 2.7 (2.0-3.5) g/dL Albumin/Globulin Ratio 1.0 L (1.3-2.8) Urine Color Urine Appearance Urine pH (5.0-8.0) Ur Specific Schuyler (1.001-1.035) Urine Protein (NEGATIVE) mg/dL Urine Glucose (UA) (NEGATIVE) mg/dL Urine Ketones (NEGATIVE) mg/dL Urine Occult Blood (NEGATIVE) Urine Nitrite (NEGATIVE) Urine Bilirubin (NEGATIVE) Urine Urobilinogen (<2.0) EU/dL Ur Leukocyte Esterase (NEGATIVE) Urine RBC (0-2/HPF) Urine WBC (0-5/HPF) Ur Epithelial Cells (NONE-FEW) Urine Bacteria (NEGATIVE) Urine Yeast 03/24/17 03/25/17 Range/Units 23:05 00:03 WBC (4.0-11.0) K/uL RBC (4.50-5.90) M/uL Hgb (13.0-17.0) g/dL Hct (38.0-50.0) % MCV (80.0-98.0) fL MCH (27.0-32.0) pg MCHC (31.0-37.0) g/dL RDW Std Deviation (28.0-62.0) fl RDW Coeff of Bryce (11.0-15.0) % Plt Count (150-400) K/uL MPV (7.40-12.00) fL Neut % (Auto) (48.0-80.0) % Lymph % (Auto) (16.0-40.0) % Frontier % (Auto) (0.0-15.0) % Eos % (Auto) (0.0-7.0) % Baso % (Auto) (0.0-1.5) % Neut # (Auto) (1.4-5.7) K/uL Lymph # (Auto) (0.6-2.4) K/uL Frontier # (Auto) (0.0-0.8) K/uL Eos # (Auto) (0.0-0.7) K/uL Baso # (Auto) (0.0-0.1) K/uL Nucleated RBC % /100WBC Nucleated RBCs # K/uL Lactate 1.7 (0.20-2.00) mmol/L Sodium (136-146) mmol/L Potassium (3.5-5.1) mmol/L Chloride (98-110) mmol/L Carbon Dioxide (21-31) mmol/L BUN (6.0-23.0) mg/dL Creatinine (0.6-1.5) mg/dL Est Cr Clr Drug Dosing Estimated GFR (MDRD) ml/min Glucose (60-110) mg/dL Calcium (8.8-10.8) mg/dL Total Bilirubin (0.1-1.5) mg/dL AST (5-40) IU/L ALT (8-54) IU/L Alkaline Phosphatase (40-150) Troponin I (0.0-0.29) NG/ML B-Natriuretic Peptide (<100) PG/ML Total Protein (6.0-8.0) g/dL Albumin (3.4-4.8) g/dL Globulin (2.0-3.5) g/dL Albumin/Globulin Ratio (1.3-2.8) Urine Color YELLOW Urine Appearance HAZY Urine pH 6.0 (5.0-8.0) Ur Specific Schuyler 1.025 (1.001-1.035) Urine Protein 100 (NEGATIVE) mg/dL Urine Glucose (UA) NEGATIVE (NEGATIVE) mg/dL Urine Ketones NEGATIVE (NEGATIVE) mg/dL Urine Occult Blood TRACE-INTACT (NEGATIVE) Urine Nitrite NEGATIVE (NEGATIVE) Urine Bilirubin NEGATIVE (NEGATIVE) Urine Urobilinogen 0.2 (<2.0) EU/dL Ur Leukocyte Esterase SMALL (NEGATIVE) Urine RBC 1-3 (0-2/HPF) Urine WBC 10-12 (0-5/HPF) Ur Epithelial Cells RARE (NONE-FEW) Urine Bacteria 1+ H (NEGATIVE) Urine Yeast MODERATE Meds: Medications Generic Name Dose Route Start Last Admin Trade Name Freq PRN Reason Stop Dose Admin Sodium Chloride 1,000 mls @ 83 mls/hr 03/24/17 23:00 03/24/17 23:21 Normal Saline IV 83 mls/hr ASDIRECTED KETAN Administration Sodium Chloride 10 ml 03/24/17 22:50 03/24/17 23:20 Saline Flush FLUSH 10 ml ASDIRECTED PRN Administration Keep Vein Open Sodium Chloride 2.5 ml 03/24/17 22:50 03/24/17 23:20 Saline Flush FLUSH 2.5 ml ASDIRECTED PRN Administration Keep Vein Open Discontinued Medications Generic Name Dose Route Start Last Admin Trade Name Freq PRN Reason Stop Dose Admin Albuterol/Ipratropium 3 ml 03/24/17 22:51 03/24/17 23:23 Duoneb 3.0-0.5 Mg/3 Ml NEB 03/24/17 22:52 3 ml ONETIME ONE Administration Departure - Departure Time of Disposition: 01:12 Disposition: Refer to Observation Condition: Good Clinical Impression: COPD exacerbation Dyspnea Qualifiers: Dyspnea type: unspecified Qualified Code(s): R06.00 - Dyspnea, unspecified CHF exacerbation Qualifiers: Heart failure type: unspecified Qualified Code(s): I50.9 - Heart failure, unspecified UTI (urinary tract infection) Qualifiers: Urinary tract infection type: site unspecified Hematuria presence: without hematuria Qualified Code(s): N39.0 - Urinary tract infection, site not specified - Discharge Information Referrals: PCP,None [Primary Care Provider] - Forms: ED Department Discharge - My Orders Last 24 Hours: My Active Orders 03/24/17 22:50 Cardiac Monitoring [RC] . DIRECTED EKG Documentation Completion [RC] STAT Oxygen Therapy, ED [RC] ASDIRECTED Pulse Oximetry [RC] ASDIRECTED Sodium Chloride 0.9% [Saline Flush] 10 ml FLUSH ASDIRECTED PRN Sodium Chloride 0.9% [Saline Flush] 2.5 ml FLUSH ASDIRECTED PRN Saline Lock Insert [OM.PC] Stat 03/24/17 22:51 Chest 1V Frontal [CR] Stat Blood Culture x2 Reflex Set [OM.PC] Stat 03/24/17 22:52 RT Aerosol Therapy [RC] ASDIRECTED 03/24/17 23:00 Sodium Chloride 0.9% [Normal Saline] 1,000 ml IV ASDIRECTED 03/24/17 23:05 CULTURE BLOOD [BC] Stat 03/24/17 23:19 CULTURE BLOOD [BC] Stat 03/25/17 00:03 CULTURE URINE [RM] Stat 03/25/17 01:09 Furosemide [Lasix] 40 mg IVPUSH NOW ONE Levofloxacin [Levaquin] 500 mg PO ONETIME ONE methylPREDNISolone Sod Succ [Solu-MEDROL] 125 mg IVPUSH ONETIME ONE 03/25/17 01:10 Patient Status [ADT] Stat - Assessment/Plan Last 24 Hours: My Active Orders 03/24/17 22:50 Cardiac Monitoring [RC] . DIRECTED EKG Documentation Completion [RC] STAT Oxygen Therapy, ED [RC] ASDIRECTED Pulse Oximetry [RC] ASDIRECTED Sodium Chloride 0.9% [Saline Flush] 10 ml FLUSH ASDIRECTED PRN Sodium Chloride 0.9% [Saline Flush] 2.5 ml FLUSH ASDIRECTED PRN Saline Lock Insert [OM.PC] Stat 03/24/17 22:51 Chest 1V Frontal [CR] Stat Blood Culture x2 Reflex Set [OM.PC] Stat 03/24/17 22:52 RT Aerosol Therapy [RC] ASDIRECTED 03/24/17 23:00 Sodium Chloride 0.9% [Normal Saline] 1,000 ml IV ASDIRECTED 03/24/17 23:05 CULTURE BLOOD [BC] Stat 03/24/17 23:19 CULTURE BLOOD [BC] Stat 03/25/17 00:03 CULTURE URINE [RM] Stat 03/25/17 01:09 Furosemide [Lasix] 40 mg IVPUSH NOW ONE Levofloxacin [Levaquin] 500 mg PO ONETIME ONE methylPREDNISolone Sod Succ [Solu-MEDROL] 125 mg IVPUSH ONETIME ONE 03/25/17 01:10 Patient Status [ADT] Stat
[2017-03-24] MEDS ORDERED: Sodium Chloride 0.9% 1,000 ML IV SCH (23:00)
[2017-03-25 00:03] LABS: CHLORIDE,CL 97 mmol/L (98-110); SODIUM,NA 141 mmol/L (136-146)
[2017-03-25] MEDS ORDERED: Levofloxacin 500 MG Tab PO ONE (01:09)
[2017-03-25] MEDS ORDERED: methylPREDNISolone Sodium Succinate 125 MG/2 ML SDV IVPUSH ONE (01:09)
[2017-03-25] MEDS ORDERED: Furosemide 40 MG/4 ML VIAL IVPUSH ONE (01:09)
[2017-03-25] MEDS ORDERED: Acetaminophen 325 MG Tab PO PRN ×2 (02:40→10:03)
[2017-03-25 05:36] LABS: CHLORIDE,CL 96 mmol/L (98-110); SODIUM,NA 142 mmol/L (136-146)
[2017-03-25] MEDS: Cephalexin 500 MG Cap PO SCH ×3 (05:45→18:50)
[2017-03-25] MEDS: Albuterol/Ipratropium 3.0-0.5 MG/3 ML Neb Soln NEB SCH ×3 (06:37→18:43)
[2017-03-25] MEDS ORDERED: Ondansetron 4 MG/2 ML SDV IVPUSH PRN (10:03)
[2017-03-25] MEDS ORDERED: Albuterol/Ipratropium 3.0-0.5 MG/3 ML Neb Soln NEB PRN (10:03)
--- NOTE | 2017-03-25 10:30 | CR ---
EXAM DATE: 03/25/17 PATIENT'S AGE: 81 Patient: SWETA CABRERA Facility: [place], [place] Site . Site : [id number] Study: XRay Chest [id number] 11:37:34 PM Ordering Physician: Doctor Lopez Final Report: INDICATION: Dyspnea TECHNIQUE: Chest radiograph 1 view COMPARISON: 11/14/2016 FINDINGS: Mediastinum: The heart silhouette is normal in size and morphology. The mediastinum is normal in appearance. Lungs: New small left pleural effusion is present with minimal left basilar atelectasis. No pneumothorax is identified. Bones and soft tissue: Cephalad migration of the right humeral head is noted, likely due to rotator cuff atrophy and/or tear. Old inferior right rib fractures are seen. IMPRESSIONS: 1. These findings can be seen with atelectasis and/or pneumonia. 2. New small left pleural effusion is present with minimal left basilar atelectasis. Dictated by Sammy Whitehead MD @ 03/24/2017 11:39:01 PM Dictated by: Sammy Whitehead MD @ 03/24/2017 23:39:06 (Electronic Signature) Report Signed by Proxy. NONA
[2017-03-25] MEDS: Enoxaparin 40 MG/0.4 ML Syringe SUBCUT SCH (11:36)
[2017-03-25] MEDS ORDERED: Levofloxacin/Dextrose 5%-Water 750 MG in Premix Bag 1 BAG IV SCH (12:00)
[2017-03-25] MEDS ORDERED: Nicotine Polacrilex 2 MG Gum CHEW PRN (12:13)
--- NOTE | 2017-03-25 17:55 | PCM.HP ---
H&P History of Present Illness - General Date of Service: 03/25/17 Source of Information: Patient History Limitations: Reports: Other (Dementia) - History of Present Illness Initial Comments - Free Text/Narative: This is a 81-year-old male who is a better from [place] and with Alzheimer's dementia who is a poor historian due to this issue presenting with increasing cough and low saturations appreciated in the prison. Patient while in the prison is oxygen dependent on 2 L nasal cannula and has significant past medical history of COPD, CHF, BPH as well as a chronic indwelling Vee catheter. Patient initially in the ER was saturating 80% on 3 L nasal cannula, and was found to have an elevated BNP of 1561. He was subsequently given increased O2 support, IV fluids, dual nebs, Solu-Medrol, Lasix, Levaquin which improved his O2 requirement and O2 saturations. Patient is on chronic Keflex secondary to infection that was MSSA secondary to a scrotal abscess seen in [place]. Patient's chest x-ray does indicate a possible pneumonia and a new small left pleural effusion with minimal left basilar atelectasis. - Related Data Allergies/Adverse Reactions: Allergies Allergy/AdvReac Type Severity Reaction Status Date / Time Penicillins Allergy Rash Verified 03/24/17 23:14 Home Medications: Home Meds Acetaminophen [Tylenol Extra Strength] 500 mg PO TID PRN 05/18/13 [History] Tamsulosin [Tamsulosin 24 Hr] 2 cap PO DAILY 05/18/13 [History] Albuterol/Ipratropium [DuoNeb 3.0-0.5 MG/3 ML] 3 ml NEB QID 11/14/16 [History] Ascorbate Calcium [Vitamin C] 1,000 mg PO BID 11/14/16 [History] Aspirin [Halfprin] 81 mg PO DAILY 11/14/16 [History] Calcium Carbonate/Vitamin D3 [Calcium 600 + Vit D 200] 1 tab PO DAILY 11/14/16 [ History] Carboxymethylcellulose Sodium [Refresh Tears] 2 drop EYEBOTH TID 11/14/16 [ History] Dextromethorphan/guaiFENesin [Robitussin DM] 5 ml PO Q4H PRN 11/14/16 [History] Donepezil HCl [Aricept] 10 mg PO BEDTIME 11/14/16 [History] Famotidine [Pepcid] 40 mg PO DAILY 11/14/16 [History] Fish Oil/[place]-3 Fatty Acids [Fish Oil 1,000 MG] 1,000 mg PO TID 11/14/16 [ History] Fluticasone Propionate [Flonase] 2 spray NASBOTH DAILY PRN 11/14/16 [History] Glucosamine [Glucosamine Sulfate] 500 mg PO TID 11/14/16 [History] Hydrochlorothiazide 25 mg PO DAILY 11/14/16 [History] Levothyroxine [Synthroid] 50 mcg PO ACBREAKFAST 11/14/16 [History] Melatonin 3 mg PO BEDTIME 11/14/16 [History] Metoprolol Succinate [Toprol XL] 100 mg PO DAILY 11/14/16 [History] Multivitamin [Daily Piper] 1 tab PO DAILY 11/14/16 [History] Nicotine Polacrilex [Nicorette] 2 mg PO ASDIRECTED PRN 11/14/16 [History] Vit A & D3 In Cod Liver Oil [Cod Liver Oil Softgel] 1,000 mg PO DAILY 11/14/16 [ History] Cephalexin [Keflex] 500 mg PO QID 03/25/17 [History] Past Medical History - Past Health History Medical/Surgical History: Denies Medical/Surgical History HEENT History: Reports: Cataract Cardiovascular History: Reports: Afib, High Cholesterol, Hypertension, SOB on Exertion Respiratory History: Reports: Bronchitis, Recurrent, COPD, Pneumonia, Recurrent , Other (See Below) Other Respiratory History: smoker Genitourinary History: Reports: BPH, Renal Disease, Retention, Urinary Musculoskeletal History: Reports: Osteoarthritis Other Musculoskeletal History: muscle weakness; arthropathy Neurological History: Reports: Alzheimers Disease Psychiatric History: Reports: Anxiety, Depression, Mood Swings Endocrine/Metabolic History: Reports: Hyperthyroidism Social & Family History - Family History Family Medical History: Noncontributory - Tobacco Use Smoking Status *Q: Former Smoker Years of Tobacco use: 40 Packs/Tins Daily: 0.2 Used Tobacco, but Quit: Yes Month Tobacco Last Used: 10 years - Caffeine Use Caffeine Use: Reports: Coffee - Recreational Drug Use Recreational Drug Use: No H&P Review of Systems - Review of Systems: Review Of Systems: ROS reveals no pertinent complaints other than HPI. Exam - Exam Exam: See Below - Vital Signs Vital Signs: Last Vital Signs Temp 36.8 C 03/25/17 16:00 Pulse 64 03/25/17 16:00 Resp 18 03/25/17 16:00 BP 118/54 L 03/25/17 16:00 Pulse Ox 98 03/25/17 16:00 Weight: 46.629 kg - Exam Quality Assessment: Supplemental Oxygen General: Alert, Cooperative Lungs: Decreased Breath Sounds Cardiovascular: Regular Rate, Regular Rhythm (Male) Exam: Other (There is scleral tenderness at the site of the I&D with mild redness but no appreciable cellulitis-type infection.) Extremities: No Pedal Edema - Patient Data Result Diagrams: 03/25/17 05:00 03/25/17 05:00 *Q Meaningful Use (ADM) - VTE *Q VTE Criteria *Q: - Stroke *Q Stroke Criteria *Q: - AMI *Q AMI Criteria *Q: - Problem List (1) CHF exacerbation SNOMED Code(s): 08262953 ICD Code: I50.9 - HEART FAILURE, UNSPECIFIED Status: Acute Current Visit : Yes Qualifiers: Heart failure type: unspecified Qualified Code(s): I50.9 - Heart failure, unspecified (2) COPD exacerbation SNOMED Code(s): 636794585 ICD Code: J44.1 - CHRONIC OBSTRUCTIVE PULMONARY DISEASE W (ACUTE) EXACERBATION Status: Acute Current Visit: Yes (3) UTI (urinary tract infection) SNOMED Code(s): 54522805 ICD Code: N39.0 - URINARY TRACT INFECTION, SITE NOT SPECIFIED Status: Acute Current Visit: Yes Qualifiers: Urinary tract infection type: site unspecified Hematuria presence: without hematuria Qualified Code(s): N39.0 - Urinary tract infection, site not specified (4) COPD (chronic obstructive pulmonary disease) SNOMED Code(s): 01909433 ICD Code: J44.9 - CHRONIC OBSTRUCTIVE PULMONARY DISEASE, UNSPECIFIED Status : Acute Current Visit: No Qualifiers: COPD type: unspecified COPD Qualified Code(s): J44.9 - Chronic obstructive pulmonary disease, unspecified (5) Scrotal abscess SNOMED Code(s): 22138597 ICD Code: N49.2 - INFLAMMATORY DISORDERS OF SCROTUM Status: Acute Current Visit: No (6) Urinary retention SNOMED Code(s): 669798107 ICD Code: R33.9 - RETENTION OF URINE, UNSPECIFIED Status: Acute Current Visit: No Problem List Initiated/Reviewed/Updated: Yes Orders Last 24hrs: Active Orders 24 hr Category Date Time Status Vee Catheter Insertion [Insert Urinary Catheter] [OM. Care 03/25/17 12:00 Ordered PC] Q24H Urinary Catheter Assessment [RC] ASDIRECTED Care 03/25/17 11:53 Active Urinary Catheter Removal [RC] Per Unit Routine Care 03/25/17 11:52 Active Levofloxacin/Dextrose 5%-Water [Levaquin in D5W 750 MG/ Med 03/25/17 12:00 Active 150 ML] 750 mg Premix Bag 1 bag IV Q48H Nicotine Polacrilex [Nicorelief] Med 03/25/17 12:13 Active 2 mg CHEW Q2H PRN Medication Orders Acetaminophen (Tylenol) 650 mg PO Q4H PRN PRN Reason: Pain Acetaminophen (Tylenol) 650 mg PO Q4H PRN PRN Reason: Pain (Mild 1-3)/fever Albuterol/Ipratropium (Duoneb 3.0-0.5 Mg/3 Ml) 3 ml NEB Q6HRRT [facility] Last Admin: 03/25/17 11:25 Dose: 3 ml Admin: 03/25/17 06:37 Dose: 3 ml Albuterol/Ipratropium (Duoneb 3.0-0.5 Mg/3 Ml) 3 ml NEB Q4HRRT PRN PRN Reason: Shortness Of Breath/wheezing Cephalexin (Keflex) 500 mg PO QID [facility] Last Admin: 03/25/17 11:36 Dose: 500 mg Admin: 03/25/17 05:45 Dose: 500 mg Enoxaparin Sodium (Lovenox) 40 mg SUBCUT DAILY [facility] Last Admin: 03/25/17 11:36 Dose: 40 mg Levofloxacin/Dextrose 750 mg/ (Premix) 150 mls @ 100 mls/hr IV Q48H [facility] Last Admin: 03/25/17 12:43 Dose: 100 mls/hr Nicotine Polacrilex (Nicorelief) 2 mg CHEW Q2H PRN PRN Reason: nicotine withdrawal Ondansetron HCl (Zofran) 4 mg IVPUSH Q4H PRN PRN Reason: Nausea/Vomiting Sodium Chloride (Saline Flush) 10 ml FLUSH ASDIRECTED PRN PRN Reason: Keep Vein Open Last Admin: 03/24/17 23:20 Dose: 10 ml Sodium Chloride (Saline Flush) 2.5 ml FLUSH ASDIRECTED PRN PRN Reason: Keep Vein Open Last Admin: 03/24/17 23:20 Dose: 2.5 ml Assessment/Plan Comment:: This is a 81-year-old gentleman who is presenting with low saturation, increased O2 requirement with an elevated BNP, x-ray findings of a possible pneumonia, and a chronic indwelling catheter with a possible UTI infection. Etiology based upon patient's clinical signs and symptoms points towards an acute COPD exacerbation over a congestive heart failure exacerbation. Assessment: 1. Hypoxia, shortness of breath with increased oxygen requirement likely secondary to acute exacerbation of COPD with a possible CHF and pneumonia component -COPD the patient shall be receiving Solu-Medrol 60 mg every 6 hours, DuoNeb nebs every 4 hours when necessary, Levaquin to cover for the pneumonia, Lasix 40 mg to cover for his CHF and elevated BNP. 2. UTI/scrotal abscess -Patient had an orchectomy in [place] with a subsequent scrotal abscess which was drained and cultured and it was MSSA positive resistant to Levaquin the patient was put on Keflex. -As such due to the resistance of the organism we will keep the patient on Keflex, and change the indwelling Vee catheter of the patient. -We'll reassess in the a.m., labs in the a.m.
[2017-03-25] MEDS: methylPREDNISolone Sodium Succinate 125 MG/2 ML SDV IVPUSH SCH (18:50)
[2017-03-25] MEDS: Nicotine 14 MG/24 Hr Patch TRDERM SCH (18:50)
[2017-03-25] MEDS: Sodium Hypochlorite 0.25% Soln 473 ML TOP SCH ×2 (22:52→23:06)
[2017-03-26] MEDS: Albuterol/Ipratropium 3.0-0.5 MG/3 ML Neb Soln NEB SCH ×3 (00:11→11:08)
[2017-03-26] MEDS: methylPREDNISolone Sodium Succinate 125 MG/2 ML SDV IVPUSH SCH ×3 (00:11→11:59)
[2017-03-26] MEDS: Cephalexin 500 MG Cap PO SCH ×3 (00:11→11:57)
[2017-03-26] MEDS: Sodium Hypochlorite 0.25% Soln 473 ML TOP SCH (05:36)
[2017-03-26 06:17] LABS: CHLORIDE,CL 92 mmol/L (98-110); SODIUM,NA 137 mmol/L (136-146)
[2017-03-26] MEDS: Enoxaparin 40 MG/0.4 ML Syringe SUBCUT SCH (09:41)
[2017-03-26] MEDS: Nicotine 14 MG/24 Hr Patch TRDERM SCH (09:55)
--- NOTE | 2017-03-26 11:23 | PCM.DCSUM1 ---
<Edu Cunningham Z - Last Filed: 03/26/17 11:02> Discharge Summary - Hospital Course HPI Initial Comments: Discharge Summary Date of admission: 03/25/17 Date of discharge: 03/26/17 Admitting diagnosis: #1. Hypoxia, shortness of breath with increased oxygen requirement secondary to acute COPD exacerbation with possible pneumonia component #2. Pneumonia #3. UTI/scrotal abscess Discharge diagnoses: #1. Acute on chronic COPD stable #2. Pneumonia resolving #3. Scrotal abscess/UTI patient on appropriate antibiotic therapy Consultations: None Procedures: None Hospitalization course: Patient was admitted on 03/25/2017 secondary to concerns for hypoxia in the senior care. Patient received Solu-Medrol 60 mg every 6 hours, dual nebs every 4 hours when necessary, patient was given 1 dose of Lasix 40 mg for his elevated BNP and possible CHF exacerbation that was appreciated. Patient had a scrotal abscess that was seen when the patient was in [place] for which the culture came back as MSSA positive resistant to Levaquin as a result patient was put on Keflex by [facility] long-term. We continued the Keflex here while in inpatient along with changing his Vee catheter. Patient was also started on Levaquin for his possible pneumonia. Patient was stable overnight, back to baseline in terms of his O2 requirement of 2 L, he was saturating above 88% which is appropriate for a patient that has acute on chronic COPD. Patient had his dressing changed for his scrotal abscess. Since the patient did not have any fevers, chills, nausea, vomiting, or any vital instability it was felt that the patient was stable enough to go back to [facility] for continuing of care. Disposition on discharge: [facility] Condition on discharge: Stable Discharge medications: Continuation of home medication Patient started on oral prednisone 40 mg by mouth tapered dose, patient to continue Levaquin 750 mg daily by mouth for 6 more days, patient COPD medications were optimized with the introduction of a LAMA/LABA inhaler Anoro Ellipta ( Umeclidinium Brm/Vilanterol 62.5-25 Mcg inhaler 1 puff daily). - Discharge Data Discharge Date: 03/26/17 Discharge Disposition: DC/Tfer to [facility] Condition: Fair - Discharge Diagnosis/Problem(s) (1) CHF exacerbation SNOMED Code(s): 07969337 ICD Code: I50.9 - HEART FAILURE, UNSPECIFIED Status: Acute QualifierTitle: Heart failure type: unspecified Qualified Code(s): I50.9 - Heart failure, unspecified (2) COPD exacerbation SNOMED Code(s): 161176755 ICD Code: J44.1 - CHRONIC OBSTRUCTIVE PULMONARY DISEASE W (ACUTE) EXACERBATION Status: Acute (3) UTI (urinary tract infection) SNOMED Code(s): 85417912 ICD Code: N39.0 - URINARY TRACT INFECTION, SITE NOT SPECIFIED Status: Acute QualifierTitle: Urinary tract infection type: site unspecified Hematuria presence: without hematuria Qualified Code(s): N39.0 - Urinary tract infection , site not specified (4) COPD (chronic obstructive pulmonary disease) SNOMED Code(s): 51243115 ICD Code: J44.9 - CHRONIC OBSTRUCTIVE PULMONARY DISEASE, UNSPECIFIED Status : Acute QualifierTitle: COPD type: unspecified COPD Qualified Code(s): J44.9 - Chronic obstructive pulmonary disease, unspecified (5) Scrotal abscess SNOMED Code(s): 93616475 ICD Code: N49.2 - INFLAMMATORY DISORDERS OF SCROTUM Status: Acute (6) Urinary retention SNOMED Code(s): 696208647 ICD Code: R33.9 - RETENTION OF URINE, UNSPECIFIED Status: Acute - Patient Instructions Diet: Usual Diet as Tolerated Activity: As Tolerated Driving: Do Not Drive Showering/Bathing: May Shower Wound/Incision Care: Keep Operative Site/Wound Site Clean and Dry, Change Dressing Daily Notify Provider of: Fever, Increased Pain, Swelling and Redness, Drainage, Nausea and/or Vomiting - Discharge Plan Prescriptions/Med Rec: Levofloxacin [Levaquin] 750 mg PO DAILY 6 Days #6 tab Prednisone [IJD: predniSONE] See Taper PO WITHBREAKFAST #10 tab Umeclidinium Brm/Vilanterol Tr [Anoro Ellipta 62.5-25 MCG] 1 puff IH DAILY #1 inhaler Home Medications: Home Meds Acetaminophen [Tylenol Extra Strength] 500 mg PO TID PRN 05/18/13 [History] Tamsulosin [Flomax] 2 cap PO DAILY 05/18/13 [History] Albuterol/Ipratropium [DuoNeb 3.0-0.5 MG/3 ML] 3 ml NEB QID 11/14/16 [History] Ascorbate Calcium [Vitamin C] 1,000 mg PO BID 11/14/16 [History] Aspirin [Halfprin] 81 mg PO DAILY 11/14/16 [History] Calcium Carbonate/Vitamin D3 [Calcium 600 + Vit D 200] 1 tab PO DAILY 11/14/16 [ History] Carboxymethylcellulose Sodium [Refresh Tears] 2 drop EYEBOTH TID 11/14/16 [ History] Dextromethorphan/guaiFENesin [Robitussin DM] 5 ml PO Q4H PRN 11/14/16 [History] Donepezil HCl [Aricept] 10 mg PO BEDTIME 11/14/16 [History] Famotidine [Pepcid] 40 mg PO DAILY 11/14/16 [History] Fish Oil/[place]-3 Fatty Acids [Fish Oil 1,000 MG] 1,000 mg PO TID 11/14/16 [ History] Fluticasone Propionate [Flonase] 2 spray NASBOTH DAILY PRN 11/14/16 [History] Glucosamine [Glucosamine Sulfate] 500 mg PO TID 11/14/16 [History] Hydrochlorothiazide 25 mg PO DAILY 11/14/16 [History] Levothyroxine [Synthroid] 50 mcg PO ACBREAKFAST 11/14/16 [History] Melatonin 3 mg PO BEDTIME 11/14/16 [History] Metoprolol Succinate [Toprol XL] 100 mg PO DAILY 11/14/16 [History] Multivitamin [Daily Piper] 1 tab PO DAILY 11/14/16 [History] Nicotine Polacrilex [Nicorette] 2 mg PO ASDIRECTED PRN 11/14/16 [History] Vit A & D3 In Cod Liver Oil [Cod Liver Oil Softgel] 1,000 mg PO DAILY 11/14/16 [ History] Cephalexin [Keflex] 500 mg PO QID 03/25/17 [History] Levofloxacin [Levaquin] 750 mg PO DAILY 6 Days #6 tab 03/26/17 [Rx] Prednisone [IJD: predniSONE] See Taper PO WITHBREAKFAST #10 tab 03/26/17 [Rx] Umeclidinium Brm/Vilanterol Tr [Anoro Ellipta 62.5-25 MCG] 1 puff IH DAILY #1 inhaler 03/26/17 [Rx] Patient Handouts: Umeclidinium; Vilanterol inhalation powder, Chronic Obstructive Pulmonary Disease, [id number], Urinary Tract Infection, Adult, [id number], Levofloxacin tablets, Prednisone tablets Referrals: Hernan Naik MD [Physician] - 03/30/17 (On his next [facility] rounds.) - Discharge Summary/Plan Comment DC Time >30 min.: No - Patient Data Vitals - Most Recent: Last Vital Signs Temp 36.5 C 03/26/17 08:00 Pulse 60 03/26/17 04:03 Resp 16 03/26/17 08:00 BP 129/62 03/26/17 04:03 Pulse Ox 99 03/26/17 10:06 Weight - Most Recent: 46.629 kg I&O - Last 24 hours: Intake & Output 03/25/17 03/26/17 03/26/17 22:59 06:59 14:59 Intake Total 880 275 Output Total 700 475 Balance 180 -200 Lab Results - Last 24 hrs: Laboratory Results - last 24 hr 03/26/17 03/26/17 Range/Units 05:25 05:25 WBC 4.37 (4.0-11.0) K/uL RBC 3.57 L (4.50-5.90) M/uL Hgb 10.3 L (13.0-17.0) g/dL Hct 34.2 L (38.0-50.0) % MCV 95.8 (80.0-98.0) fL MCH 28.9 (27.0-32.0) pg MCHC 30.1 L (31.0-37.0) g/dL RDW Std Deviation 53.1 (28.0-62.0) fl RDW Coeff of Bryce 15 (11.0-15.0) % Plt Count 210 (150-400) K/uL MPV 9.40 (7.40-12.00) fL Neut % (Auto) 95.2 H (48.0-80.0) % Lymph % (Auto) 3.2 L (16.0-40.0) % [place] % (Auto) 1.6 (0.0-15.0) % Eos % (Auto) 0.0 (0.0-7.0) % Baso % (Auto) 0.0 (0.0-1.5) % Neut # (Auto) 4.2 (1.4-5.7) K/uL Lymph # (Auto) 0.1 L (0.6-2.4) K/uL [place] # (Auto) 0.1 (0.0-0.8) K/uL Eos # (Auto) 0.0 (0.0-0.7) K/uL Baso # (Auto) 0.0 (0.0-0.1) K/uL Nucleated RBC % 0.0 /100WBC Nucleated RBCs # 0 K/uL Sodium 137 (136-146) mmol/L Potassium 4.6 (3.5-5.1) mmol/L Chloride 92 L (98-110) mmol/L Carbon Dioxide 37 H (21-31) mmol/L BUN 19 (6.0-23.0) mg/dL Creatinine 0.8 (0.6-1.5) mg/dL Est Cr Clr Drug Dosing 46.95 mL/min Estimated GFR (MDRD) > 60.0 ml/min Glucose 145 H (60-110) mg/dL Calcium 8.4 L (8.8-10.8) mg/dL Total Bilirubin 0.3 (0.1-1.5) mg/dL AST 17 (5-40) IU/L ALT 6 L (8-54) IU/L Alkaline Phosphatase 50 (40-150) Total Protein 5.2 L (6.0-8.0) g/dL Albumin 2.6 L (3.4-4.8) g/dL Globulin 2.6 (2.0-3.5) g/dL Albumin/Globulin Ratio 1.0 L (1.3-2.8) Med Orders - Current: Current Medications Acetaminophen (Tylenol) 650 mg PO Q4H PRN PRN Reason: Pain Acetaminophen (Tylenol) 650 mg PO Q4H PRN PRN Reason: Pain (Mild 1-3)/fever Albuterol/Ipratropium (Duoneb 3.0-0.5 Mg/3 Ml) 3 ml NEB Q6HRRT [facility] Last Admin: 03/26/17 06:30 Dose: 3 ml Albuterol/Ipratropium (Duoneb 3.0-0.5 Mg/3 Ml) 3 ml NEB Q4HRRT PRN PRN Reason: Shortness Of Breath/wheezing Cephalexin (Keflex) 500 mg PO QID [facility] Last Admin: 03/26/17 05:32 Dose: 500 mg Enoxaparin Sodium (Lovenox) 40 mg SUBCUT DAILY [facility] Last Admin: 03/26/17 09:41 Dose: 40 mg Levofloxacin/Dextrose 750 mg/ (Premix) 150 mls @ 100 mls/hr IV Q48H [facility] Last Admin: 03/25/17 12:43 Dose: 100 mls/hr Methylprednisolone Sodium Succinate (Solu-Medrol) 60 mg IVPUSH Q6H [facility] Last Admin: 03/26/17 05:34 Dose: 60 mg Nicotine (Habitrol) 14 mg TRDERM DAILY [facility] Last Admin: 03/26/17 09:55 Dose: Not Given Nicotine Polacrilex (Nicorelief) 2 mg CHEW Q2H PRN PRN Reason: nicotine withdrawal Ondansetron HCl (Zofran) 4 mg IVPUSH Q4H PRN PRN Reason: Nausea/Vomiting Sodium Chloride (Saline Flush) 10 ml FLUSH ASDIRECTED PRN PRN Reason: Keep Vein Open Last Admin: 03/24/17 23:20 Dose: 10 ml Sodium Chloride (Saline Flush) 2.5 ml FLUSH ASDIRECTED PRN PRN Reason: Keep Vein Open Last Admin: 03/24/17 23:20 Dose: 2.5 ml Sodium Hypochlorite ([place]akin's 1/2 Strength) 0 ml TOP TID [facility] Last Admin: 03/26/17 05:36 Dose: 1 dose Discontinued Medications Albuterol/Ipratropium (Duoneb 3.0-0.5 Mg/3 Ml) 3 ml NEB ONETIME ONE Stop: 03/24/17 22:52 Last Admin: 03/24/17 23:23 Dose: 3 ml Furosemide (Lasix) 40 mg IVPUSH NOW ONE Stop: 03/25/17 01:10 Last Admin: 03/25/17 01:20 Dose: 40 mg Sodium Chloride (Normal Saline) 1,000 mls @ 83 mls/hr IV ASDIRECTED [facility] Last Infusion: 03/25/17 01:19 Dose: 50 mls/hr Levofloxacin (Levaquin) 500 mg PO ONETIME ONE Stop: 03/25/17 01:10 Last Admin: 03/25/17 01:19 Dose: 500 mg Methylprednisolone Sodium Succinate (Solu-Medrol) 125 mg IVPUSH ONETIME ONE Stop: 03/25/17 01:10 Last Admin: 03/25/17 01:23 Dose: 125 mg *Q Meaningful Use (DIS) - VTE *Q VTE Criteria *Q: - Stroke *Q Stroke Criteria *Q: - AMI *Q AMI Criteria *Q: <Desmond Rodríguez - Last Filed: 04/01/17 07:24> - Patient Data Vitals - Most Recent: Last Vital Signs Temp 36.3 C 03/26/17 12:10 Pulse 60 03/26/17 04:03 Resp 18 03/26/17 12:10 BP 133/63 03/26/17 12:10 Pulse Ox 96 03/26/17 12:10 Med Orders - Current: Current Medications Discontinued Medications Acetaminophen (Tylenol) 650 mg PO Q4H PRN PRN Reason: Pain Acetaminophen (Tylenol) 650 mg PO Q4H PRN PRN Reason: Pain (Mild 1-3)/fever Albuterol/Ipratropium (Duoneb 3.0-0.5 Mg/3 Ml) 3 ml NEB ONETIME ONE Stop: 03/24/17 22:52 Last Admin: 03/24/17 23:23 Dose: 3 ml Albuterol/Ipratropium (Duoneb 3.0-0.5 Mg/3 Ml) 3 ml NEB Q6HRRT [facility] Last Admin: 03/26/17 11:08 Dose: 3 ml Albuterol/Ipratropium (Duoneb 3.0-0.5 Mg/3 Ml) 3 ml NEB Q4HRRT PRN PRN Reason: Shortness Of Breath/wheezing Cephalexin (Keflex) 500 mg PO QID [facility] Last Admin: 03/26/17 11:57 Dose: 500 mg Enoxaparin Sodium (Lovenox) 40 mg SUBCUT DAILY [facility] Last Admin: 03/26/17 09:41 Dose: 40 mg Furosemide (Lasix) 40 mg IVPUSH NOW ONE Stop: 03/25/17 01:10 Last Admin: 03/25/17 01:20 Dose: 40 mg Sodium Chloride (Normal Saline) 1,000 mls @ 83 mls/hr IV ASDIRECTED [facility] Last Infusion: 03/25/17 01:19 Dose: 50 mls/hr Levofloxacin/Dextrose 750 mg/ (Premix) 150 mls @ 100 mls/hr IV Q48H [facility] Last Admin: 03/25/17 12:43 Dose: 100 mls/hr Levofloxacin (Levaquin) 500 mg PO ONETIME ONE Stop: 03/25/17 01:10 Last Admin: 03/25/17 01:19 Dose: 500 mg Methylprednisolone Sodium Succinate (Solu-Medrol) 125 mg IVPUSH ONETIME ONE Stop: 03/25/17 01:10 Last Admin: 03/25/17 01:23 Dose: 125 mg Methylprednisolone Sodium Succinate (Solu-Medrol) 60 mg IVPUSH Q6H [facility] Last Admin: 03/26/17 11:59 Dose: 60 mg Nicotine (Habitrol) 14 mg TRDERM DAILY [facility] Last Admin: 03/26/17 09:55 Dose: Not Given Nicotine Polacrilex (Nicorelief) 2 mg CHEW Q2H PRN PRN Reason: nicotine withdrawal Ondansetron HCl (Zofran) 4 mg IVPUSH Q4H PRN PRN Reason: Nausea/Vomiting Sodium Chloride (Saline Flush) 10 ml FLUSH ASDIRECTED PRN PRN Reason: Keep Vein Open Last Admin: 03/24/17 23:20 Dose: 10 ml Sodium Chloride (Saline Flush) 2.5 ml FLUSH ASDIRECTED PRN PRN Reason: Keep Vein Open Last Admin: 03/24/17 23:20 Dose: 2.5 ml Sodium Hypochlorite (Dakin's 1/2 Strength) 0 ml TOP TID [facility] Last Admin: 03/26/17 05:36 Dose: 1 dose *Q Meaningful Use (DIS) - VTE *Q VTE Criteria *Q: - Stroke *Q Stroke Criteria *Q: - AMI *Q AMI Criteria *Q: - Free Text/Narrative Note: I have examined the patient. I have discussed findings and treatment plan with the resident. I agree with the assessment and plan outlined in the following resident's note.
[2017-03-26 12:12] VITALS: BP 133/63
== END 2017-03-26 13:05 | DRG 291 ==
LOC: MW.ED 22:36 → MW.MS 03-25 01:10 → OBSVTOIN 03-25 10:03 → MW.MS 03-26 06:53
PROVIDERS: ADMIT Internal Medicine; ATTEND Internal Medicine
DX: R06.00 Dyspnea, unspecified (principal); I50.9 Heart failure, unspecified; R09.02 Hypoxemia; J18.9 Pneumonia, unspecified organism; J44.0 Chronic obstructive pulmonary disease with (acute) lower respiratory infection; J44.9 Chronic obstructive pulmonary disease, unspecified; N40.0 Benign prostatic hyperplasia without lower urinary tract symptoms; E03.9 Hypothyroidism, unspecified; N39.0 Urinary tract infection, site not specified; J90 Pleural effusion, not elsewhere classified; J44.1 Chronic obstructive pulmonary disease with (acute) exacerbation; N49.2 Inflammatory disorders of scrotum; B95.61 Methicillin susceptible Staphylococcus aureus infection as the cause of diseases classified elsewhere; R33.9 Retention of urine, unspecified; G30.9 Alzheimer's disease, unspecified; Z87.891 Personal history of nicotine dependence; F02.80 Dementia in other diseases classified elsewhere, unspecified severity, without behavioral disturbance, psychotic disturbance, mood disturbance, and anxiety; N40.1 Benign prostatic hyperplasia with lower urinary tract symptoms; R33.8 Other retention of urine; I48.91 Unspecified atrial fibrillation; E78.00 Pure hypercholesterolemia, unspecified; I10 Essential (primary) hypertension; F41.8 Other specified anxiety disorders; E05.90 Thyrotoxicosis, unspecified without thyrotoxic crisis or storm; Z88.0 Allergy status to penicillin; Z79.899 Other long term (current) drug therapy
CPT/HCPCS: 36415; 71045; 80048; 81001; 83605; 83880; 85025 ×2; 87040 ×2; 87086; 87804 ×2; 93005; 94640; 96361; 96374; 96375; 99285; A9270 ×2; J1940; J2930; J7040; 51702; 80053; 84484; J1650; J1956